=== PATIENT | male | born 1980 | race Caucasian/White ===

== ENCOUNTER 2022-04-28 20:22 | Emergency (ER) | payer MEDICAID, SELFPAY ==
--- NOTE | 2022-04-28 20:28 | ED.EYEPROB ---
HPI - Eye Problem General Chief complaint: Eye Problems Stated complaint: right eye injury has something in it. Time Seen by Provider: 04/28/22 20:25 Source: patient and RN notes reviewed Mode of arrival: ambulatory Limitations: no limitations History of Present Illness MD chief complaint: eye pain and foreign body Onset (ago): hour(s) (7) Onset description: sudden Duration: constant Location: right eye Eye Symptoms: burning, foreign body sensation and discharge Place: work Mechanism: occurred while hammering/grinding Severity: moderate If Pain, Quality: burning Associated symptoms: none Treatments Prior to Arrival: irrigated eye and OTC eye drops Related Data Home Medications Medication Instructions Recorded Confirmed No Home Medications 04/28/22 04/28/22 Allergies Allergy/AdvReac Type Severity Reaction Status Date / Time No Known Allergies Allergy Verified 04/28/22 20:47 Review of Systems Review of Systems: All systems reviewed & are unremarkable except as noted in HPI and below PMFSH Past Medical History Medical History (Updated 04/28/22 @ 20:48 by Allen Mohr MD) Asthma Surgical History Surgical History (Updated 04/28/22 @ 20:46 by Allen Mohr MD) History of appendectomy Social History Social History (Updated 04/28/22 @ 20:46 by Allen Mohr MD) Smoking packs per day: 0.5 Smoking cigarettes per day: 10.0 Smoking status: Current every day smoker Tobacco type: cigarettes Exam Const: General: healthy appearing, no acute distress and alert Nutritional Appearance: well nourished Orientation/consciousness: patient oriented x3 Limitations: no limitations HENMT: Head: normal to inspection Ears: external ears normal General nose exam: Normal external nose present Face and sinus: normal facial exam Mouth: Yes moist mucous membranes Eyes: Alignment and Position: alignment normal Sclera: scleral abnormality right scleral injection diffuse Cornea: corneas abnormal on the right fluorescein used and foreign body at clock position (9) and other Pupils: Equal, round and reactive pupils present EOM: EOMs intact bilaterally Neck: Neck: normal visual inspection Resp: Effort & Inspection: normal respiratory effort Auscultation: clear to auscultation bilaterally Cardio: Rate: regular rate Rhythm: regular rhythm GI: GI Palp: Yes Soft to palpation and No Tenderness to palpation present (GI) Auscultation: normal bowel sounds Back/Spine/Pelvis: Cervical Spine: cervical ROM normal Thoracic/Lumbar Spine: thoraco-lumbar ROM normal Skin: General skin exam: normal color Rashes: no rashes Wounds: no wounds Neuro: General: patient oriented x3, moves all extremities, no focal motor deficits and CN's II-XI intact bilaterally Speech: normal speech Gait exam (Neuro): Normal gait present Extrem: General: normal to inspection and no clubbing, cyanosis or edema Psych: Mental Status: mental status grossly normal Affect: normal affect Attitude: cooperative Course Vital Signs Vital signs: Vital Signs Temperature 36.9 C 04/28/22 20:40 Pulse Rate 84 04/28/22 20:40 Respiratory Rate 19 04/28/22 20:40 Blood Pressure 124/75 04/28/22 20:40 Pulse Oximetry 98 04/28/22 20:40 Oxygen Delivery Room Air 04/28/22 20:40 Temperature 36.8 C 04/28/22 21:14 Pulse Rate 93 04/28/22 21:14 Respiratory Rate 17 04/28/22 21:14 Blood Pressure 113/73 04/28/22 21:14 Pulse Oximetry 98 04/28/22 21:14 Oxygen Delivery Room Air 04/28/22 21:14 Procedures FB Removal Eye Foreign Body #1: Foreign Body Removal Date: 04/28/22 Time Out performed: Yes Location: eye (R) Topical anesthetic used: tetracaine Foreign body: other Evidence of corneal penetration: No Technique: cotton tip swab Procedure performed under: direct visualization with magnification Post-procedure medication: ophthalmic antibiotic Pat
[2022-04-28 20:40] VITALS: BP 124/75; PULSE 84; RESP 19; TEMP 36.9; O2SAT 98
[2022-04-28] MEDS: TOBRAMYCIN SULFATE 0.3% OPHTH SOLN 5 ML 2 DROP RIGHT EYE (20:55)
[2022-04-28] MEDS: FLUORESCEIN SOD 1 MG/STRIP RIGHT EYE (20:55)
[2022-04-28] MEDS: DACRIOSE EYE IRRIGATION 118 ML BOTTLE 10 ML LEFT EYE (20:55)
[2022-04-28] MEDS: TETRACAINE HCL 0.5% OPHTH SOLN 4 ML BTL 1 DROP LEFT EYE (20:56)
[2022-04-28] MEDS: Please add drug allergy info to patient profile. XX (20:56)
[2022-04-28 21:14] VITALS: BP 113/73; PULSE 93; RESP 17; TEMP 36.8; O2SAT 98
== END 2022-04-28 21:15 | disposition home or self-care (01) ==
PROVIDERS: Emergency Provider Emergency Medicine
DX: S05.01XA Injury of conjunctiva and corneal abrasion without foreign body, right eye, initial encounter (principal); T15.91XA Foreign body on external eye, part unspecified, right eye, initial encounter; F17.200 Nicotine dependence, unspecified, uncomplicated
CPT/HCPCS: 65220; 99283; A9270